=== PATIENT | female | born 1970 | race Caucasian/White ===

== ENCOUNTER 2016-09-14 13:30 | Emergency (ER) | payer OTHER ==
[~2016-09-14] VITALS: Ht 149.9 cm; Wt 63.5 kg
[~2016-09-14 13:30] MED LIST: LAMO25TA5 PO; RISP0.2519 PO; SULF1TAB24 PO; THYR30TA PO
[2016-09-14 14:33] LABS: BASO # 0.1 x10^3/uL (0.0-0.2); BASO % 1 % (0-3); EOS % 1 % (0-3); HEMOGLOBIN 13.9 g/dL (12.0-15.5); LYMPH # 2.5 x10^3/uL (1.0-4.8); LYMPH % 26 % (24-48); MEAN CORPUSCULAR HEMOGLOBIN 30 pg (25-35); MEAN CORPUSCULAR HGB CONC 35 g/dL (31-37); MEAN CORPUSCULAR VOLUME 88 fL (79-100); MONO % 6 % (0-9); NEUT % 67 % (31-73); PLATELET COUNT 268 x10^3/uL (140-400); RED BLOOD COUNT 4.57 x10^6/uL (3.50-5.40); WHITE BLOOD COUNT 9.7 x10^3/uL (4.0-11.0)
[2016-09-14 15:03] LABS: CALCIUM 9.7 mg/dL (8.5-10.1); CREATININE 0.6 mg/dL (0.6-1.0); GFR 108.6; POTASSIUM 3.7 mmol/L (3.5-5.1)
--- NOTE | 2016-09-14 15:09 | RAD ---
Indication chest pain. Duration of symptoms one month. AP views of the chest were obtained. No prior imaging of the chest is available. Heart size and pulmonary vessels are within normal limits. The lungs are clear. There is no pleural fluid or pneumothorax. The visualized bony structures appear grossly intact IMPRESSION: No acute or focal process seen in the chest
[2016-09-14] MEDS ORDERED: NITR100C62 PO (15:34)
--- NOTE | 2016-09-14 15:35 | PHYS DOC ---
Past Medical History Past Medical History: Depression, Hypothyroid, Other Additional Past Medical Histor: Sluggish gall bladder 20yrs ago. Past Surgical History: Hysterectomy, Other Additional Past Surgical Histo: Vulvectomy (for HPV) Alcohol Use: Occasionally Drug Use: None Adult General Chief Complaint Chief Complaint: SHORTNESS OF BREATH HPI HPI This is a 45 old female who's had ongoing chest pain for the last month but has worsened throughout today. She does state she has some mild left arm pain and left jaw pain that has been noticed intermittently throughout the month as well. Patient does smoke approximately one pack a day for the last 30 years. She does have history of hypothyroidism and was in to see her primary care doctor last week who checked routine labs and believed her symptoms are more likely related to abnormal thyroid testing then cardiac disease. Patient states she has not had a significant cardiac workup. She does state she has a mother that has history of cardiac bypass surgery. She is unsure of her father's medical history. Patient does have 1 sibling who has an older brother that does not have any known cardiac disease. Currently she rates her pain as mild and is not requesting anything for her symptoms. She denies any significant shortness of breath with her symptoms. Review of Systems Review of Systems Constitutional: Denies fever or chills [] Eyes: Denies change in visual acuity, redness, or eye pain [] HENT: Denies nasal congestion or sore throat [] Respiratory: Denies cough or shortness of breath [] Cardiovascular: No additional information not addressed in HPI [] GI: Denies abdominal pain, nausea, vomiting, bloody stools or diarrhea [] : Denies dysuria or hematuria [] Musculoskeletal: Denies back pain or joint pain [] Integument: Denies rash or skin lesions [] Neurologic: Denies headache, focal weakness or sensory changes [] Endocrine: Denies polyuria or polydipsia [] Allergies Allergies Allergies Coded Allergies Type Severity Reaction Last Updated Verified No Known Drug Allergies 04/05/16 No Physical Exam Physical Exam Constitutional: Well developed, well nourished, no acute distress, non-toxic appearance. [] HENT: Normocephalic, atraumatic, bilateral external ears normal, oropharynx moist, no oral exudates, nose normal. [] Eyes: PERRLA, EOMI, conjunctiva normal, no discharge. [] Neck: Normal range of motion, no tenderness, supple, no stridor. [] Cardiovascular:Heart rate regular rhythm, no murmur [] Lungs & Thorax: Bilateral breath sounds clear to auscultation [] Abdomen: Bowel sounds normal, soft, no tenderness, no masses, no pulsatile masses. [] Skin: Warm, dry, no erythema, no rash. [] Back: No tenderness, no CVA tenderness. [] Extremities: No tenderness, no cyanosis, no clubbing, ROM intact, no edema. [] Neurologic: Alert and oriented X 3, normal motor function, normal sensory function, no focal deficits noted. [] Psychologic: Affect normal, judgement normal, mood normal. [] Current Patient Data Vital Signs Vital Signs Date Time Temp Pulse Resp B/P Pulse Ox O2 Delivery O2 Flow Rate FiO2 09/14/16 15:13 88 20 145/78 95 Room Air 09/14/16 14:18 98.4 98.4 Lab Values Laboratory Tests Test 09/14/16 14:20 White Blood Count 9.7x10^3/uL (4.0-11.0) Red Blood Count 4.57x10^6/uL (3.50-5.40) Hemoglobin 13.9g/dL (12.0-15.5) Hematocrit 40.0% (36.0-47.0) Mean Corpuscular Volume 88fL (79-100) Mean Corpuscular Hemoglobin 30pg (25-35) Mean Corpuscular Hemoglobin Concent 35g/dL (31-37) Red Cell Distribution Width 13.0% (11.5-14.5) Platelet Count 268x10^3/uL (140-400) Neutrophils (%) (Auto) 67% (31-73) Lymphocytes (%) (Auto) 26% (24-48) Monocytes (%) (Auto) 6% (0-9) Eosinophils (%) (Auto) 1% (0-3) Basophils (%) (Auto) 1% (0-3) Neutrophils # (Auto) 6.5x10^3uL (1.8-7.7) Lymphocytes # (Auto) 2.5x10^3/uL (1.0-4.8) Monocytes # (Auto) 0.5x10^3/uL (0.0-1.1) Eosinophils # (Auto) 0.1x10^3/uL (0.0-0.7) Basophils # (Auto) 0.1x10^3/uL (0.0-0.2) Sodium Level 142mmol/L (136-145) Potassium Level 3.7mmol/L (3.5-5.1) Chloride Level 104mmol/L (98-107) Carbon Dioxide Level 27mmol/L (21-32) Anion Gap 11 (6-14) Blood Urea Nitrogen 9mg/dL (7-20) Creatinine 0.6mg/dL (0.6-1.0) Estimated GFR (Cockcroft-Gault) 108.6 Glucose Level 85mg/dL (70-99) Calcium Level 9.7mg/dL (8.5-10.1) Troponin I Quantitative < 0.017ng/mL (0.000-0.055) Laboratory Tests 09/14/16 14:20 Laboratory Tests 09/14/16 14:20 EKG EKG EKG as internal by me shows a sinus rhythm with a rate of 93 bpm. Intervals are normal. There are no obvious signs of ischemia on this EKG. Radiology/Procedures Radiology/Procedures One view of the chest as interpreted by me as well as the radiologist did not reveal an acute cardiopulmonary process. Course & Med Decision Making Course & Med Decision Making Pertinent Labs and Imaging studies reviewed. (See chart for details) 45-year-old female has been having ongoing chest pain for the last month had a negative EKG and chest film as well as blood work including a set of negative cardiac enzymes. I counseled the patient at length that she should stay for continued cardiac workup. At this time the patient is sound mind and stating she is refusing to stay in the hospital and I stressed the need that she will need to follow closely in the next 1-2 days to have outpatient stress testing done. I will provide her resources to receive the stress testing. I also provided her strict instructions return if her chest pain should return or if it should worsen. Patient is very agreeable with this plan and she was discharged without incident. Dragon Disclaimer Dragon Disclaimer This electronic medical record was generated, in whole or in part, using a voice recognition dictation system. Departure Departure Impression: Primary Impression: Chest pain Disposition: ADMITTED INPATIENT Admitting Physician: Other Condition: STABLE Referrals: NON,STAFF (PCP) LUCIANA MUNOZ MD Patient Instructions: Chest Pain (Nonspecific) Additional Instructions: Please follow up with the cardiology clinic at [phone] to set up a routine stress test in the next 2 days. Return to the ER immediately if you develop any worsening of your chest pain. KAYLA CARRASQUILLO DO Sep 14, 2016 15:35
[2016-09-14 16:31] VITALS: BP 124/78
--- NOTE | 2016-09-15 06:46 | EKG ---
[facility] [address] [place] [address] Test Date: 2016-09-14 Test Time: 14:00:42 Pat Name: COLTON CARROLL Department: Room: Gender: F Counselor Supervisor: : 1970 Requested By: KAYLA CARRASQUILLO Order Number: [id number] Reading MD: Measurements Intervals Winn Rate: 93 P: 36 IL: 138 QRS: 17 QRSD: 76 T: 45 QT: 334 QTc: 418 Interpretive Statements SINUS RHYTHM RI6.01 Unconfirmed report No previous ECG available for comparison
== END 2016-09-14 16:33 | disposition home or self-care (01) ==
LOC: ER 13:30
DX: R07.89 Other chest pain (principal); M79.602 Pain in left arm; R68.84 Jaw pain; F17.210 Nicotine dependence, cigarettes, uncomplicated; E03.9 Hypothyroidism, unspecified; F32.9 Major depressive disorder, single episode, unspecified
CPT/HCPCS: 36415; 71010; 80048; 84484; 85027; 93005; 99285-25

== ENCOUNTER → 2016-09-17 | Outpatient (CLI) | payer OTHER ==
[2016-09-14 16:31] VITALS: BP 124/78
[~2016-09-17] MED LIST changes: +NITR100C62 PO
== END | disposition home or self-care (01) ==
LOC: LAB 09:35
PROVIDERS: ATTEND Internal Medicine Cardiovascular Disease
DX: R07.9 Chest pain, unspecified (principal); R06.02 Shortness of breath
CPT/HCPCS: 36415; 85379

== ENCOUNTER → 2016-12-24 | Outpatient (CLI) | payer OTHER ==
--- NOTE | 2016-12-24 09:40 | RAD ---
EXAM: Cervical spine MRI without contrast. HISTORY: Neck pain and upper extremity radiculopathy. TECHNIQUE: Multiplanar, multisequence magnetic resonance imaging of the cervical spine was performed without contrast. COMPARISON: None. FINDINGS: There is mild cervical kyphosis centered at C4-C5. There is no significant listhesis. The vertebral bodies are normal in height and demonstrate normal marrow signal. No spinal cord lesion is seen. There is a suspected small sphenoid sinus mucus retention cyst. There is a 5 mm cyst within the midline posterior nasopharyngeal soft tissues, possibly a tiny Tornwaldt cyst. At C2-3, there is no stenosis. At C3-C4, there is a minimal posterior central disc protrusion which abuts the ventral aspect of the spinal cord without significant stenosis. At C4-C5, there are bilateral posterior lateral disc disc osteophyte complex is superimposed on a disc bulge and endplate remodeling. There is uncovertebral arthropathy. There is mild bilateral foraminal stenosis. There is flattening of the ventral aspect of the spinal cord with mild central canal stenosis measuring 8.6 mm in anterior posterior dimension. At C5-C6, there are right greater than left posterior lateral disc osteophyte complexes superimposed on a disc bulge and endplate remodeling. There is uncovertebral arthropathy. There is [id number] left greater than right foraminal stenosis. There is mild flattening of the ventral aspect of the spinal cord with mild central canal stenosis measuring 8.7 mm in anterior posterior dimension. At C6-C7, there is right facet arthropathy. There is no stenosis. IMPRESSION: 1. Degenerative change within the cervical spine, described in detail above. This results in suspected mild bilateral foraminal and central canal stenosis at C4-C5 and [id number] left greater than right foraminal and mild central canal stenosis at C5-C6. 2. Mild cervical kyphosis. Electronically signed by: Rupal Yip MD (12/24/2016 9:37 AM)
--- NOTE | 2016-12-24 12:49 | RAD ---
TMJ radiographs History: Left jaw pain. Traumatic experience to left jaw 20 years ago. Jaw pain progressing to daily pain over the years. Comparison: None. Findings: Total 6 radiographs were obtained. Lateral imaging was performed of each TMJ as well as Novak view. All views were obtained with mouth open and closed. The bilateral TMJs demonstrate appropriate and symmetric anterior excursion from closed to open mouth positioning. No mandibular fracture is identified. Impression: Unremarkable radiographs of the TMJs.
== END | disposition home or self-care (01) ==
LOC: MRI 08:19
PROVIDERS: ATTEND Psychiatry & Neurology Neurology
DX: M47.892 Other spondylosis, cervical region (principal); M40.292 Other kyphosis, cervical region
CPT/HCPCS: 70330; 72141

== ENCOUNTER 2017-01-13 09:31 | Emergency (ER) | payer OTHER ==
[~2017-01-13] VITALS: Ht 149.9 cm; Wt 63.0 kg
[2017-01-13 09:39] VITALS: BP 115/79
[2017-01-13] MEDS ORDERED: DIPHTH,PERTUSS(ACELL),TET TOX 0.5 ML DISP.SYRIN. VAX IM ONE (10:15)
--- NOTE | 2017-01-13 10:47 | PHYS DOC ---
Past Medical History Past Medical History: Depression, Hypothyroid, Other Additional Past Medical Histor: Sluggish gall bladder 20yrs ago. Past Surgical History: Hysterectomy, Other Additional Past Surgical Histo: Vulvectomy (for HPV) Alcohol Use: Occasionally Drug Use: None Adult General Chief Complaint Chief Complaint: FOOT INJURY PAIN HPI HPI Patient is a 46 year old female with history of hypothyroidism and depression who presents with foreign object to the right foot. Patient states she woke up early this morning to use the bathroom and she was walking barefoot. Patient states she believes she stepped on a piece of glass. She states she believes the broke a piece of last night but did not say anything about it. Patient states she has stopped at 2 urgent care locations and they refused to remove the glass because they stated they do not have the right equipment. Patient states she tried herself to remove it with no success. Review of Systems Review of Systems Constitutional: Denies fever or chills [] Eyes: Denies change in visual acuity, redness, or eye pain [] Musculoskeletal: Denies back pain or joint pain [] Integument: Foreign object to the right foot/glass Neurologic: Denies headache, focal weakness or sensory changes [] Endocrine: Denies polyuria or polydipsia [] Current Medications Current Medications Current Medications Medications (Trade) Dose Ordered Sig/Kristen Start Time Stop Time Status Last Admin Dose Admin Diphtheria/ Tetanus/Acell Pertussis (Boostrix) 0.5 ml ONCE ONCE 01/13/17 10:15 01/13/17 10:16 DC Allergies Allergies Allergies Coded Allergies Type Severity Reaction Last Updated Verified No Known Drug Allergies 04/05/16 No Physical Exam Physical Exam Constitutional: Well developed, well nourished, no acute distress, non-toxic appearance. [] HENT: Normocephalic, atraumatic, bilateral external ears normal, oropharynx moist, no oral exudates, nose normal. [] Abdomen: Bowel sounds normal, soft, no tenderness, no masses, no pulsatile masses. [] Skin: Right plantar foot along the third metatarsal with a tiny open area where patient was digging for the glass. There is no obvious foreign body to the area. Neurovascular exam is normal to the foot. Cap refill < 2 seconds. Extremities: No tenderness, no cyanosis, no clubbing, ROM intact, no edema. [] Neurologic: Alert and oriented X 3, normal motor function, normal sensory function, no focal deficits noted. [] Psychologic: Affect normal, judgement normal, mood normal. [] Current Patient Data Vital Signs Vital Signs Date Time Temp Pulse Resp B/P (MAP) Pulse Ox O2 Delivery O2 Flow Rate FiO2 01/13/17 09:39 98.2 97 18 97 Room Air 98.2 EKG EKG [] Radiology/Procedures Radiology/Procedures [] Course & Med Decision Making Course & Med Decision Making Pertinent Labs and Imaging studies reviewed. (See chart for details) Patient is in the ED with complaints of foreign object to the right foot specifically piece of glass that she believes she stepped on last night. I could not visualize the foreign object. Informed patient we do not go digging for foreign objects from peoples bodies and unless it can be visualized externally due to tissue damage. Recommended to follow up with the general surgeon or primary care doctor. She refused tetanus in the ED stating she'll follow-up with her own PCP. Dragon Disclaimer Dragon Disclaimer This electronic medical record was generated, in whole or in part, using a voice recognition dictation system. Departure Departure Impression: Primary Impression: Foreign body in foot, right Disposition: 01 HOME, SELF-CARE Condition: STABLE Referrals: NON,STAFF (PCP) Follow-up with your doctor in one week Additional Instructions: You were seen for foreign object to the right foot. You stated it was a piece of glass. We could not visualize it. We unfortunately do not to go digging for foreign objects from peoples bodies unless we can see it, due to the dangers of damaging the tissue. We provided you a general surgeon. You can call him and follow-up. Watch the area to make sure it doesn't get infected. Apply Neosporin to the area twice a day. Keep it clean and dry. Come back to the ED if you develop a fever, if you have increased redness warmth yellow/odorous drainage from the foot. Problem Qualifiers Primary Impression: Foreign body in foot, right Encounter type: initial encounter Qualified Codes: S90.851A - Superficial foreign body, right foot, initial encounter EDWINA HERNANDEZ APRN Jan 13, 2017 10:47
== END 2017-01-13 10:50 | disposition home or self-care (01) ==
LOC: ER 10:10
DX: S90.851A Superficial foreign body, right foot, initial encounter (principal); E03.9 Hypothyroidism, unspecified; W22.8XXA Striking against or struck by other objects, initial encounter; Y93.01 Activity, walking, marching and hiking; Y99.8 Other external cause status; Y92.89 Other specified places as the place of occurrence of the external cause
CPT/HCPCS: 99281

== ENCOUNTER → 2017-01-29 | Outpatient (CLI) | payer OTHER ==
[2017-01-13 09:39] VITALS: BP 115/79
[2017-01-29] MEDS: GADOBUTROL 7.5 MMOL/7.5 ML VIAL IV ONE (09:45)
[2017-01-29 10:21] LABS: BASO % 1 % (0-3); EOS % 1 % (0-3); HEMATOCRIT 43.5 % (36.0-47.0); LYMPH # 1.5 x10^3/uL (1.0-4.8); LYMPH % 25 % (24-48); MEAN CORPUSCULAR HEMOGLOBIN 30 pg (25-35); MEAN CORPUSCULAR HGB CONC 35 g/dL (31-37); MEAN CORPUSCULAR VOLUME 86 fL (79-100); MONO % 7 % (0-9); NEUT % 66 % (31-73); PLATELET COUNT 246 x10^3/uL (140-400); RED BLOOD COUNT 5.05 x10^6/uL (3.50-5.40); RED CELL DISTRIBUTION WIDTH 12.6 % (11.5-14.5)
--- NOTE | 2017-01-29 10:25 | RAD ---
EXAM: MRI BRAIN WITH AND WITHOUT CONTRAST. HISTORY: Left facial numbness. TECHNIQUE: Magnetic resonance images of the brain and skull base were obtained before and after the intravenous administration of 7.5 mL Gadavist. COMPARISON: None. FINDINGS: There is no mass or abnormal enhancement about either trigeminal nerve complex. Meckel's caves and the skull base are otherwise unremarkable. The internal auditory canals also appear normal. A developmental venous anomaly is incidentally noted in the left posterior frontal lobe. Another is seen within the left phillip. There is vague parenchymal enhancement adjacent to it consistent with a capillary telangiectasia. It measures approximately 11 mm. There is no evidence of associated hemorrhage. There are no suspicious parenchymal lesions. There is no diffusion restriction. There are no T1 or T2 signal abnormalities. The ventricles are normal in size and position. There is mucosal thickening within the ethmoid air cells and sphenoid sinus on the right greater than left. The orbits are unremarkable. The temporal bones are unremarkable. The calvarium demonstrates no suspicious lesions. IMPRESSION: 1. No mass or abnormal enhancement along either trigeminal nerve complex. 2. 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 There is no evidence of prior hemorrhage. While these are usually benign lesions, there can be associated symptoms. Correlate clinically. Ongoing follow-up could be performed if there is persistent concern. 3. Another developmental venous anomaly within the left posterior frontal lobe is likely an incidental finding. Electronically signed by: Romel Najera MD (01/29/2017 10:22 AM) [id number]
[2017-01-29 10:35] LABS: CREATININE 0.6 mg/dL (0.6-1.0); GFR 108.1
== END | disposition home or self-care (01) ==
LOC: MRI 08:22
PROVIDERS: ATTEND Psychiatry & Neurology Neurology
DX: I78.1 Nevus, non-neoplastic (principal); G44.049 Chronic paroxysmal hemicrania, not intractable; G50.0 Trigeminal neuralgia; R20.0 Anesthesia of skin
CPT/HCPCS: 36415; 70553; 82565; 82947; 84520; 85027; 85651; 86141; A9585

== ENCOUNTER 2017-03-09 11:40 | Emergency (ER) | payer OTHER ==
[~2017-03-09] VITALS: Ht 152.4 cm; Wt 63.5 kg
[2017-03-09] MEDS ORDERED: PROC10TA57 PO (12:56)
[2017-03-09] MEDS ORDERED: HYDR-963 PO (12:56)
--- NOTE | 2017-03-09 12:56 | PHYS DOC ---
Past Medical History Past Medical History: Depression, Hypothyroid, Migraines, Other Additional Past Medical Histor: Sluggish gall bladder 20yrs ago., Past Surgical History: Hysterectomy, Other Additional Past Surgical Histo: Vulvectomy (for HPV) Alcohol Use: Occasionally Drug Use: None Adult General Chief Complaint Chief Complaint: HEADACHE HPI HPI Patient is a 46 year old female with history of chronic daily headaches and migraine headaches. Patient reports daily headaches for the past month. Patient has been evaluated by her neurologist. Dr. Fregoso for this condition and prescribed Topamax however, patient was told not to take the Topamax by her pharmacist and primary care physician due to unknown concern. Patient's been taking ibuprofen with limited improvement. Her headache is normally moderate but is rated severe today. She denies change in headache location pattern or frequency. Headache is described as dull throbbing located over the left frontal and parietal regions. It is not associated with nausea and light sensitivity. Patient does report pressure over her teeth. She is been on 22 courses of antibiotics for sinusitis along with Flonase. She has not had improvement with these symptoms. Reports right maxillary sinus tenderness. She denies neck pain neck stiffness, extremity weakness loss of sensation, fever and rash. Patient had an outpatient MRI brain performed 1 week ago. She is awaiting an appointment with her new neurologist Dr. Garcia in 1 month. Her PCP practices at [facility]. Patient is a current smoker. . Review of Systems Review of Systems ROS as per HPI. Allergies Allergies Allergies Coded Allergies Type Severity Reaction Last Updated Verified No Known Drug Allergies 04/05/16 No Physical Exam Physical Exam Constitutional: Well developed, well nourished, no acute distress, non-toxic appearance. [] HENT: Normocephalic, atraumatic, bilateral external ears normal, oropharynx moist, no oral exudates, right maxillary sinus tenderness, nose with deviated nasal septum with left nasal polyp and inflamed mucosa. Voice hoarseness. [] Eyes: PERRLA, EOMI, conjunctiva normal. [] Neck: Normal range of motion, no tenderness, supple, no stridor. [] Cardiovascular:Heart rate regular rhythm, no murmur [] Lungs & Thorax: Respirations nonlabored mildly diminished. [] Abdomen: Bowel sounds normal, soft, no tenderness, no masses, no pulsatile masses. [] Skin: Warm, dry, no erythema, no rash. [] Back: No tenderness, no CVA tenderness. [] Extremities: No tenderness, no cyanosis, no clubbing, ROM intact, no edema. [] Neurologic: Alert and oriented X 3, cranial nerves II through XII grossly intact , normal motor function, normal sensory function, no focal deficits noted. Her lower extremities 2+ and symmetric throughout. [] Psychologic: Affect normal, judgement normal, mood normal. [] Current Patient Data Vital Signs Vital Signs Date Time Temp Pulse Resp B/P (MAP) Pulse Ox O2 Delivery O2 Flow Rate FiO2 03/09/17 12:05 98.7 87 18 146/96 (113) 99 Room Air 98.7 EKG EKG [] Radiology/Procedures Radiology/Procedures [MRI dated 03/12 reviewed] Course & Med Decision Making Course & Med Decision Making Pertinent Labs and Imaging studies reviewed. (See chart for details) [Chronic daily headaches, etiology unclear. Not responsive to home medication therapy. No focal neurologic deficits on exam. Patient was advised neurologist come to the ED for hydration and pain management. She declines pain when medication in the ED as she drove herself and needs to be at work in 2 hours. Provide brief course of narcotics and antiemetics until patient can follow-up with PCP for management. ]Patient does have findings chronic sinus disease with nasal polyps. Recommend PCP referral to ENT given failure to respond to to most recent rounds of antibiotics. Return precautions reviewed. Dragon Disclaimer Dragon Disclaimer This electronic medical record was generated, in whole or in part, using a voice recognition dictation system. Departure Departure Disposition: 01 HOME, SELF-CARE Condition: GOOD Referrals: NO PCP (PCP) Patient Instructions: General Headache Without Cause, [id number] Additional Instructions: Please continue ibuprofen 600 mg 3 times daily and take hydrocodone and Compazine as needed for additional relief of headache and nausea. Follow-up with your PCP for further pain management and consideration of ENT referral. Follow-up your neurologist as scheduled. If you develop new or worsening symptoms, return to the ED. Scripts Hydrocodone/Apap 10-325 (NORCO 10-325 TABLET) 1 Each Tablet 1 TAB PO Q8HRS Y for PAIN MDD 6, #10 TAB 0 Refills Prov: ANA VIVAS DO 03/09/17 Prochlorperazine Maleate (Compazine) 10 Mg Tablet 10 MG PO Q8HRS for NAUSEA MDD 3, #10 TAB Prov: ANA VIVAS DO 03/09/17 ANA VIVAS DO Mar 09, 2017 12:56
[2017-03-09 13:03] VITALS: BP 138/84
== END 2017-03-09 13:03 | disposition home or self-care (01) ==
LOC: ER 11:40
DX: R51 Headache (principal); G43.909 Migraine, unspecified, not intractable, without status migrainosus; F32.9 Major depressive disorder, single episode, unspecified; E03.9 Hypothyroidism, unspecified
CPT/HCPCS: 99283

== ENCOUNTER 2018-10-21 11:22 | Emergency (ER) | payer OTHER ==
[~2018-10-21] VITALS: Ht 152.4 cm; Wt 67.1 kg
[~2018-10-21 11:22] MED LIST changes: +HYDR-3135 PO; +PROC10TA57 PO
[2018-10-21 11:50] VITALS: BP 128/85
[2018-10-21] MEDS ORDERED: IV NORMAL SALINE 1000ML BAG 1,000 ML IV ONE (13:00)
[2018-10-21] MEDS ORDERED: methylPREDNISolone SOD SUCC PF 125 MG/2 ML VIAL. IV ONE (13:00)
[2018-10-21] MEDS ORDERED: ONDANSETRON PF 4 MG/2 ML VIAL. IV ONE (13:00)
[2018-10-21 13:01] LABS: BASO % 1 % (0-3); EOS % 0 % (0-3); HEMATOCRIT 44.9 % (36.0-47.0); HEMOGLOBIN 15.1 g/dL (12.0-15.5); LYMPH # 1.6 x10^3/uL (1.0-4.8); LYMPH % 17 % (24-48); MEAN CORPUSCULAR HEMOGLOBIN 30 pg (25-35); MEAN CORPUSCULAR HGB CONC 34 g/dL (31-37); MEAN CORPUSCULAR VOLUME 88 fL (79-100); MONO # 0.3 x10^3/uL (0.0-1.1); MONO % 4 % (0-9); NEUT # 7.4 x10^3uL (1.8-7.7); NEUT % 79 % (31-73); PLATELET COUNT 281 x10^3/uL (140-400); RED BLOOD COUNT 5.09 x10^6/uL (3.50-5.40); RED CELL DISTRIBUTION WIDTH 12.8 % (11.5-14.5); WHITE BLOOD COUNT 9.4 x10^3/uL (4.0-11.0)
[2018-10-21 13:09] LABS: BARBITURATES NEG (NEG); BENZODIAZEPINES NEG (NEG); CANNABINOIDS NEG (NEG); COCAINE NEG (NEG); METHADONE NEG (NEG); OPIATES NEG (NEG); PHENCYCLIDINE NEG (NEG)
[2018-10-21 13:10] LABS: AMPHETAMINE/METHAMPHETAMINE NEG (NEG)
[2018-10-21] MEDS ORDERED: CLIN150C14 PO (13:10)
--- NOTE | 2018-10-21 13:11 | PHYS DOC ---
Past Medical History Past Medical History: Depression, Hypothyroid, Migraines, Other Additional Past Medical Histor: Sluggish gall bladder 20yrs ago., Past Surgical History: Hysterectomy, Other Additional Past Surgical Histo: Vulvectomy (for HPV) Alcohol Use: Occasionally Drug Use: None Adult General Chief Complaint Chief Complaint: Congestion HPI HPI Patient is a 47 year old female with history of smoking, depression, migraines , hypothyroidism, who presents to the ED today complaining of nasal congestion for 2 weeks. Patient is also complaining of right frontal headache specifically behind her right eye that has been constant for 2 weeks. She is also complaining of dizziness, she states today she got very dizzy, she had to lay on the floor for a "long time" before she was able to get up and move. Patient states she has also been vomiting today. Denies any fever. Denies any chest pain or shortness of breath. She states she was seen at urgent care 3 days ago and was started on Augmentin which she describes as "crampy medicine". She states the medicine is not working. Review of Systems Review of Systems Constitutional: Denies fever or chills [] Eyes: Denies change in visual acuity, redness, or eye pain [] HENT: Reports nasal congestion, denies sore throat [] Respiratory: Denies cough or shortness of breath [] Cardiovascular: No additional information not addressed in HPI [] GI: Denies abdominal pain, nausea, vomiting, bloody stools or diarrhea [] : Denies dysuria or hematuria [] Musculoskeletal: Denies back pain or joint pain [] Integument: Denies rash or skin lesions [] Neurologic: Reports headache and dizziness, denies focal weakness or sensory changes [] Endocrine: Denies polyuria or polydipsia [] All other systems were reviewed and found to be within normal limits, except as documented in this note. Current Medications Current Medications Current Medications Medications (Trade) Dose Ordered Sig/Kristen Start Time Stop Time Status Last Admin Dose Admin Methylprednisolone Sodium Succinate (SOLU-Medrol 125MG VIAL) 125 mg 1X ONCE 10/21/18 13:00 10/21/18 13:01 Cancel Ondansetron HCl (Zofran) 4 mg 1X ONCE 10/21/18 13:00 10/21/18 13:01 Cancel Sodium Chloride 1,000 ml @ 1,000 mls/hr 1X ONCE 10/21/18 13:00 10/21/18 13:59 Cancel Allergies Allergies Allergies Coded Allergies Type Severity Reaction Last Updated Verified No Known Drug Allergies 04/05/16 No Physical Exam Physical Exam Constitutional: Well developed, well nourished, no acute distress, non-toxic appearance. [] HENT: Normocephalic, atraumatic, bilateral external ears normal, oropharynx moist, no oral exudates, nose normal. [] Eyes: PERRLA, EOMI, conjunctiva normal, no discharge. [] Neck: Normal range of motion, no tenderness, supple, no stridor. [] Cardiovascular:Heart rate regular rhythm, no murmur [] Lungs & Thorax: Bilateral breath sounds clear to auscultation [] Abdomen: Bowel sounds normal, soft, no tenderness, no masses, no pulsatile masses. [] Skin: Warm, dry, no erythema, no rash. [] Back: No tenderness, no CVA tenderness. [] Extremities: No tenderness, no cyanosis, no clubbing, ROM intact, no edema. [] Neurologic: Alert and oriented X 3, normal motor function, normal sensory function, no focal deficits noted. Cranial nerves II through XII intact Psychologic: Affect normal, judgement normal, mood normal. [] Current Patient Data Vital Signs Vital Signs Date Time Temp Pulse Resp B/P (MAP) Pulse Ox O2 Delivery O2 Flow Rate FiO2 10/21/18 11:50 97.9 97 20 128/85 (99) 99 Room Air 97.9 Lab Values Laboratory Tests Test 10/21/18 12:47 White Blood Count 9.4 x10^3/uL (4.0-11.0) Red Blood Count 5.09 x10^6/uL (3.50-5.40) Hemoglobin 15.1 g/dL (12.0-15.5) Hematocrit 44.9 % (36.0-47.0) Mean Corpuscular Volume 88 fL (79-100) Mean Corpuscular Hemoglobin 30 pg (25-35) Mean Corpuscular Hemoglobin Concent 34 g/dL (31-37) Red Cell Distribution Width 12.8 % (11.5-14.5) Platelet Count 281 x10^3/uL (140-400) Neutrophils (%) (Auto) 79 % (31-73) H Lymphocytes (%) (Auto) 17 % (24-48) L Monocytes (%) (Auto) 4 % (0-9) Eosinophils (%) (Auto) 0 % (0-3) Basophils (%) (Auto) 1 % (0-3) Neutrophils # (Auto) 7.4 x10^3uL (1.8-7.7) Lymphocytes # (Auto) 1.6 x10^3/uL (1.0-4.8) Monocytes # (Auto) 0.3 x10^3/uL (0.0-1.1) Eosinophils # (Auto) 0.0 x10^3/uL (0.0-0.7) Basophils # (Auto) 0.0 x10^3/uL (0.0-0.2) Laboratory Tests 10/21/18 12:47 EKG EKG [] Radiology/Procedures Radiology/Procedures [] Course & Med Decision Making Course & Med Decision Making Pertinent Labs and Imaging studies reviewed. (See chart for details) This is a 47-year-old female patient presenting to the ED today complaining of nasal congestion for 2 weeks. Also complaining of dizziness and a headache for 2 weeks. Patient is currently on Augmentin for sinus infection. Today she states she was very dizzy she was unable to get up for a while and had to lay on the floor. Offered to work patient up. Patient refused stating she does not want a high bill. She is requesting we only switch her medications. Gave her prescription for clindamycin. She states she is moving to [place] and will find a PCP when she gets there. Dragon Disclaimer Dragon Disclaimer This electronic medical record was generated, in whole or in part, using a voice recognition dictation system. Departure Departure Impression: Primary Impression: Acute sinusitis Additional Impressions: Smoking addiction Headache Dizziness Disposition: 01 HOME, SELF-CARE Condition: STABLE Referrals: UNKNOWN PCP NAME (PCP) CHADWICK ALANIZ MD follow up in 1-2 weeks Patient Instructions: Dizziness, Sinusitis, Smoking Cessation Additional Instructions: You were evaluated for sinus infection, headache and dizziness. We switched antibiotics to clindamycin. Take it as prescribed. Stop taking the Augmentin. Please consider smoking cessation. Follow-up with your own doctor or the provided ENT in 1-2 weeks if symptoms don't improve. Scripts Clindamycin Hcl (CLINDAMYCIN HCL) 150 Mg Capsule 3 CAP PO TID, #90 CAP Prov: EDWINA HERNANDEZ NATALIE 10/21/18 Problem Qualifiers Primary Impression: Acute sinusitis Sinusitis location: maxillary Recurrence: non-recurrent Qualified Codes: J01.00 - Acute maxillary sinusitis, unspecified Additional Impressions: Headache Headache type: unspecified Headache chronicity pattern: acute headache Intractability: not intractable Qualified Codes: R51 - Headache EDWINA HERNANDEZ NATALIE Oct 21, 2018 13:11
[2018-10-21 13:14] LABS: CALCIUM 9.5 mg/dL (8.5-10.1); CREATININE 0.6 mg/dL (0.6-1.0); GFR 107.6; MAGNESIUM 2.1 mg/dL (1.8-2.4); POTASSIUM 4.2 mmol/L (3.5-5.1)
[2018-10-21 13:28] LABS: CREATINE KINASE 64 U/L (26-192)
== END 2018-10-21 13:18 | disposition home or self-care (01) ==
LOC: ER 11:22
DX: J01.00 Acute maxillary sinusitis, unspecified (principal); R51 Headache; R42 Dizziness and giddiness; F17.200 Nicotine dependence, unspecified, uncomplicated; R11.10 Vomiting, unspecified; E03.9 Hypothyroidism, unspecified; G43.909 Migraine, unspecified, not intractable, without status migrainosus; F32.9 Major depressive disorder, single episode, unspecified
CPT/HCPCS: 36415; 80048; 80307; 82553; 83735; 83880; 84443; 84484; 85025; 99283